=== PATIENT | female | born 1980 | race Caucasian/White ===

== ENCOUNTER → 2018-10-17 | Outpatient (CLI) | payer OTHER | LOC: FIMAGING 08:15 | PROVIDERS: ATTEND Surgery | DX: R10.11 Right upper quadrant pain (principal) | CPT/HCPCS: 78227; A9537 ==

== ENCOUNTER 2018-12-28 12:00 | Day surgery (SDC) | payer OTHER ==
[2018-12-28] MEDS ORDERED: NS 1,000 ML IV ONE (13:41)
[2018-12-28] MEDS ORDERED: IOPAMIDOL (ISOVUE-300) 100 ML BTL ONE (13:53)
[2018-12-28] MEDS ORDERED: BUPIVACAINE/EPI 0.5% 30 ML SDV ONE (17:58)
[2018-12-28] MEDS ORDERED: LR 1,000 ML IV ONE (18:28)
[2018-12-28] MEDS ORDERED: MIDAZOLAM 2 MG/2 ML VIAL ONE (18:49)
[2018-12-28] MEDS ORDERED: PROPOFOL 200 MG/20 ML VIAL ONE (18:53)
[2018-12-28] MEDS ORDERED: fentaNYL 100 MCG/2 ML INJ ONE ×2 (18:53)
[2018-12-28] MEDS ORDERED: ROCURONIUM 50 MG/5 ML VIAL ONE (18:54)
[2018-12-28] MEDS ORDERED: LIDOCAINE 2% 2 ML INJ ONE (18:55)
[2018-12-28] MEDS ORDERED: SUGAMMADEX SODIUM 200 MG/2 ML VIAL IVP ONE (19:26)
[2018-12-28] MEDS ORDERED: ONDANSETRON 4 MG/2 ML VIAL ONE (19:26)
[2018-12-28] MEDS ORDERED: DEXAMETHASONE 4 MG/ML VIAL ONE (19:26)
[2018-12-28] MEDS ORDERED: MIDAZOLAM 2 MG/2 ML VIAL IVP ONE (19:31)
[2018-12-28] MEDS ORDERED: PROMETHAZINE HCL 25 MG/ML INJ IVP PRN (19:32)
[2018-12-28] MEDS ORDERED: oxyCODONE IR 5 MG TAB PO PRN (19:32)
[2018-12-28] MEDS ORDERED: fentaNYL 100 MCG/2 ML INJ IVP PRN (19:32)
[2018-12-28] MEDS ORDERED: DIAZEPAM 10 MG/2 ML SYR IVP PRN (19:32)
[2018-12-28] MEDS ORDERED: ALBUTEROL 3 ML DEYVIAL IH PRN (19:32)
[2018-12-28] MEDS ORDERED: ONDANSETRON 4 MG/2 ML VIAL IVP PRN (19:32)
[2018-12-28] MEDS ORDERED: LR 500 ML IV PRN (19:32)
[2018-12-28] MEDS ORDERED: ACETAMINOPHEN 500 MG TAB PO PRN (19:32)
[2018-12-28] MEDS ORDERED: HYDROCODONE/APAP 5/325 TAB PO PRN (19:32)
[2018-12-28] MEDS ORDERED: NALOXONE HCL 0.4 MG/ML INJ IVP PRN (19:32)
[2018-12-28] MEDS ORDERED: PHENYLEPHRINE HCL 100 MCG/ML SYR IVP PRN (19:32)
[2018-12-28] MEDS ORDERED: HYDROmorphONE/DILAUDID 1 MG/ML INJ IVP PRN (19:32)
== END 2018-12-28 21:26 | disposition home or self-care (01) ==
DX: K35.80 Unspecified acute appendicitis (principal); E86.9 Volume depletion, unspecified

== ENCOUNTER → 2018-12-28 | Outpatient (CLI) | payer OTHER ==
--- NOTE | 2018-12-28 20:19 | POSTOPPROG ---
Post Op Note Date of Operation: 12/28/18 Surgeon: García Acevedo Anesthesia: GET(General Endotracheal) Pre-op Diagnosis: appendicitis Post-op Diagnosis: possible early appy, hemoperitoneum, endomeriosis Indication: rlq pain Procedure: laparoscopic appendectomy, peritoneal biopsy for possible endometrioisis Findings: as above Inf/Abcess present in the surg proc area at time of surgery?: No
--- NOTE | 2018-12-28 20:54 | GHP ---
[f rep st] PREOP HISTORY AND PHYSICAL DATE OF ADMISSION: 12/28/2018 PREOPERATIVE DIAGNOSIS: Possible appendicitis. POSTOPERATIVE DIAGNOSIS: Possible appendicitis, hemoperitoneum, likely endometriosis. OPERATION: Laparoscopic appendectomy and peritoneal biopsies. INDICATION: 38-year-old female with right lower quadrant pain and CT scan showing a 10 mm tip of the appendix. The radiologist was concerned about tip appendicitis. ANESTHESIA: General anesthetic. DESCRIPTION OF PROCEDURE: The abdomen was scrubbed with ChloraPrep, draped in the usual sterile fash ion. Infraumbilical incision made. Veress needle used to achieve a pneumoperitoneum. A 12 mm troca r placed. When the telescope was introduced, it was obvious there was old blood in the pelvis. This was aspirated. When the uterus was lifted up, there seemed to be some inflammation between the lowe r aspect of the uterus and vagina and the anterior surface of the rectum. There was some adherent bl ood clot and scarring. This was felt to likely represent endometriosis. An attempt was made with a cup biopsy forceps to remove a small amount of this material for sample, which was done. There also seemed to be a mm type implant of endometriosis on the bladder flap. Attention was paid to the appendix. It was dilated at the tip, but did not appear to be inflamed. T he mesoappendix was harvested with a Harmonic Scalpel. Eventually, the appendix was amputated flush on the cecum with an Endo-JERRY stapler with a blue load, placed in an Endopouch and extracted. All ga s and fluid was vented from the abdomen. The fascial defect at the umbilicus closed with 0 Vicryl, s kin with 4-0 Monocryl and Dermabond. Pictures were taken for the patient's record. /[id number]/MODL
== END | disposition home or self-care (01) ==
LOC: BMCIMAGING 09:34
PROVIDERS: ATTEND Family Medicine
DX: R10.2 Pelvic and perineal pain (principal); R10.31 Right lower quadrant pain